=== PATIENT | male | born 1955 | race Caucasian/White ===

== ENCOUNTER 2020-09-13 13:04 | Outpatient (CLI) | payer MEDICARE, SELFPAY ==
--- NOTE | 2020-09-13 13:23 | XR_ITS ---
WS: [id number] Right shoulder, 3 views, 09/13/2020 Clinical Data: R SHOULDER PAIN Comparison: None. Findings: No fractures or dislocations are seen. The AC joint is normal. The adjacent right clavicle, right sca pula and ribs are normal. The soft tissues are unremarkable. Incidentally noted is a patchy opacity at the right cardiophrenic angle and also in the left hilum an d a chest x-ray may be helpful. XR/XR shoulder RT min 2V* [id number] Impression: 1. Negative right shoulder. 2. Possible patchy opacities at right cardiophrenic angle and in left hilum and a chest x-ray may be helpful.
== END 2020-09-13 13:05 | disposition home or self-care (01) ==
PROVIDERS: PCP Family Medicine; Visit Provider Family Medicine
DX: M25.511 Pain in right shoulder (principal)
CPT/HCPCS: 73030

== ENCOUNTER 2020-09-28 10:44 | Outpatient (CLI) | payer MEDICARE, SELFPAY ==
--- NOTE | 2020-09-28 10:49 | CT_ITS ---
WS: [id number] CT CHEST WITHOUT INTRAVENOUS CONTRAST HISTORY: ABNORMAL CHEST RADIOGRAPH TECHNIQUE: Contiguous 5 mm axial imaging performed on the thorax. Coronal and sagittal reformats are submitted. All CT scans at [facility] use at least one of these dose optimization techniq ues: automated exposure control; mA and/or kV adjustment per patient size (includes targeted exams wh ere dose is matched to clinical indication); or iterative reconstruction. CONTRAST: None DLP: 1039.82 mGycm COMPARISON: RIGHT shoulder radiograph 09/13/2020. Lungs and central airway: Lungs are clear. No opacifications are identified. These opacifications wer e probably dependent changes due to supine positioning of the patient in expiration. Pleura: Normal. No pleural effusion. Heart and pericardium: Normal size heart. No pericardial effusion. Scattered coronary artery calcific ations. Mediastinum and andrew: No mediastinum or hilar adenopathy. Vessels: Normal size aortic and pulmonary artery. No coronary artery calcifications. Chest wall and lower neck: There are several small lymph nodes in the LEFT axilla. Soft tissue reticu lation surrounding the nodules in the LEFT axilla of uncertain etiology. No mass identified. Upper abdomen: Splenic granulomata. Normal adrenal glands. Osseous structures: No osteoblastic or osteolytic bone disease. CT/CT chest wo con [id number] IMPRESSION: 1. No pulmonary mass or nodule. Opacifications seen on the recent radiograph a re probably dependent changes and due to expiration. 2. Very mild soft tissue stranding and inflammation surrounding the LEFT axill mehreen lymph nodes. LEFT axillary lymph nodes are normal size. This may be a react jaxson response to infection or trauma.
== END 2020-09-28 10:45 | disposition home or self-care (01) ==
LOC: RADWPI 10:49
PROVIDERS: PCP Family Medicine; Visit Provider Family Medicine
DX: R91.8 Other nonspecific abnormal finding of lung field (principal)
CPT/HCPCS: 71250

== ENCOUNTER → 2021-12-10 12:07 | Outpatient (BNVA) | payer MEDICARE, SELFPAY | PROVIDERS: PCP Family Medicine; Visit Provider Family Medicine | DX: L02.91 Cutaneous abscess, unspecified (principal) | CPT/HCPCS: 87070; 87077; 87184 ==

== ENCOUNTER → 2022-02-12 12:48 | Outpatient (BNVA) | payer MEDICARE, SELFPAY | PROVIDERS: PCP Family Medicine; Visit Provider Specialist | DX: M17.0 Bilateral primary osteoarthritis of knee (principal); M48.061 Spinal stenosis, lumbar region without neurogenic claudication; M25.561 Pain in right knee; M25.562 Pain in left knee | CPT/HCPCS: 73560; 73565; 99204 ==

== ENCOUNTER → 2022-03-25 10:32 | Outpatient (BNVA) | payer MEDICARE, SELFPAY | PROVIDERS: PCP Family Medicine; Referring Provider Specialist; Visit Provider Specialist | DX: G62.89 Other specified polyneuropathies (principal); M54.50 Low back pain, unspecified | CPT/HCPCS: 95909; 95911 ==

== ENCOUNTER 2022-04-22 15:29 | Outpatient (CLI) | payer MEDICARE, SELFPAY ==
--- NOTE | 2022-04-22 16:00 | MR_ITS ---
WS: [id number] MRI LUMBAR SPINE NONCONTRAST HISTORY: pain COMPARISON: 06/28/2012 TECHNIQUE: Sagittal and axial multisequence imaging is submitted. Patient has a known, previously described syrinx at the T12 level. This is incompletely visualized on this lumbar MRI. Does not appear to have progressed inferiorly. Straightening of the normal lumbar lordosis. Schmorl's node defect superior endplate of L3. Hypertrop hic vertebral body osteophytes at all levels. S1 is lumbarized. Disc spaces are mildly desiccated throughout. Conus terminates normally at L1. T12-L1: Slight anterolisthesis of T12. Moderate ligamentum flavum and facet arthritis and disc bulgin g. Mild bilateral foraminal narrowing. L1-L2: Mild annular disc bulging and osteophytic ridging. Mild facet and ligamentum flavum hypertroph y. No significant stenosis. L2-L3: Moderate annular disc bulging with encroachment upon the ventral thecal sac and flattening. Fa cet joint arthritis and ligamentum flavum hypertrophy encroaching towards the subarticular recesses a nd foramen. Mild central and bilateral subarticular recess stenosis. L3-L4: Diffuse osteophytic ridging and annular disc bulging with marked ligamentum flavum and facet a rthritis. Fluid in the facet joints. There is severe central and bilateral subarticular recess stenos is. Mild to moderate bilateral foraminal stenosis, RIGHT greater than LEFT. Progression of stenosis s jean carlos the prior study. L4-L5: Diffuse annular disc bulging and osteophytic ridging. Marked ligamentum flavum and facet arthr itis. Fluid in the facet joints bilaterally. Moderate progression of stenosis since the prior study. Moderate to severe central with bilateral subarticular recess and [id number] foraminal stenosis . L5-S1: Diffuse annular disc bulging with marked ligamentum flavum and facet arthritis. Fluid in the f acet joints bilaterally. Disc and osteophyte encroachment upon the S1 and L5 nerve roots bilaterally. There may be a small disc protrusion in the RIGHT foramen. Nevertheless there is moderate central wi th moderate to severe subarticular recess and foraminal stenosis. Greater stenosis on the RIGHT. Paravertebral soft tissues are negative. MR/MR lumbar spine wo con* [id number] IMPRESSION: 1. Progression of stenosis at L3-4, L4-5 and L5-S1. 2. Moderate to severe central and bilateral subarticular recess and mild to mo derate foraminal stenosis at L4-5. 3. Moderate central with moderate to severe bilateral subarticular recess and foraminal stenosis at L5-S1, greatest on the RIGHT. RIGHT foraminal disc protru aleta is suspected. 4. Severe central with bilateral subarticular recess stenosis at L3-4 with mil d to moderate foraminal stenosis RIGHT greater than LEFT. 5. Mild central and bilateral subarticular recess stenosis at L2-3. 6. Incompletely visualized but previously described syrinx at the T12 level.
== END 2022-04-22 15:30 | disposition home or self-care (01) ==
LOC: RAD 15:30
PROVIDERS: PCP Family Medicine; Visit Provider Specialist
DX: M25.569 Pain in unspecified knee (principal); M48.061 Spinal stenosis, lumbar region without neurogenic claudication; M48.07 Spinal stenosis, lumbosacral region
CPT/HCPCS: 72148

== ENCOUNTER → 2022-04-24 13:05 | Outpatient (BNVA) | payer MEDICARE, SELFPAY | PROVIDERS: PCP Family Medicine; Referring Provider Specialist; Visit Provider Specialist | DX: G62.89 Other specified polyneuropathies (principal); M06.9 Rheumatoid arthritis, unspecified; M48.062 Spinal stenosis, lumbar region with neurogenic claudication; R20.0 Anesthesia of skin; R20.2 Paresthesia of skin | CPT/HCPCS: 36415; 82607; 82746; 83036; 84155; 84165; 85651; 86160; 86162; 86235; 86255; 86376; 86431; 95861; 99202 ==

== ENCOUNTER → 2022-05-12 12:54 | Outpatient (BNVA) | payer MEDICARE, SELFPAY | PROVIDERS: PCP Family Medicine; Visit Provider Specialist | DX: X58.XXXA Exposure to other specified factors, initial encounter (principal); S83.206A Unspecified tear of unspecified meniscus, current injury, right knee, initial encounter; M48.062 Spinal stenosis, lumbar region with neurogenic claudication; G62.9 Polyneuropathy, unspecified | CPT/HCPCS: 99214; 99215 ==

== ENCOUNTER 2022-07-02 12:50 | Outpatient (CLI) | payer MEDICARE, SELFPAY ==
--- NOTE | 2022-07-02 13:00 | MR_ITS ---
WS: [id number] MRI RIGHT KNEE HISTORY: Posterior RIGHT knee pain for 4 months. Locking knee. COMPARISON: Radiographs 02/12/2022 Anterior cruciate ligament: Intact. Edema surrounds the ACL but no tear. Posterior cruciate ligament: Intact. Medial collateral ligament: Edema surrounds the MCL but there is no tear. Posterior lateral corner structures: Partial tear of the fibular collateral ligament. There is increa sed fluid within the ligament. Lateral collateral ligament is being displaced from the joint line by an extruded meniscus. Medial menisci: Horizontal tear posterior one extends to the inferior articular surface near the body . Anterior horn is normal. Lateral meniscus: Diffusely abnormal signal throughout the anterior horn. Complex tear extends to the superior and inferior articular surfaces. Extensor mechanism: Distal quadriceps tendon and patellar tendons are intact. Fluid and soft tissue: Moderate to large joint effusion. Moderate Thompson's cyst. Osseous and articular structures: Patellofemoral compartment: Normal position of the patella. Mild chondromalacia lateral patellar face t. Medial compartment: Mild narrowing of the medial compartment. Significant loss of cartilage along the femoral condyle and tibial plateau. No fracture or marrow edema. Lateral compartment: Mild narrowing of the lateral compartment with thinning and fissuring of the car tilage. Meniscus is extruded from the joint line by 6.4 mm. Large amount of edema extends into the infrapatellar fat pad. MR/MR knee RT wo con* [id number] IMPRESSION: 1. Horizontal tear posterior horn medial meniscus. 2. Complex tear anterior horn lateral meniscus with meniscal extrusion from th e joint line. 3. Extruded lateral meniscus is displacing the fibular collateral ligament fro m the joint line. 4. Mild fibular collateral ligament sprain. 5. Moderate to large joint effusion. 6. Moderate-sized Thompson's cyst. 7. Moderate chondromalacia medial compartment 8. Mild chondromalacia medial patellar facet and in the lateral compartment.
== END 2022-07-02 12:51 | disposition home or self-care (01) ==
LOC: RAD 12:52
PROVIDERS: PCP Family Medicine; Visit Provider Specialist
DX: M25.461 Effusion, right knee; M71.21 Synovial cyst of popliteal space [Baker], right knee; M22.41 Chondromalacia patellae, right knee; S83.241A Other tear of medial meniscus, current injury, right knee, initial encounter; X58.XXXA Exposure to other specified factors, initial encounter
CPT/HCPCS: 73721

== ENCOUNTER → 2022-10-22 11:24 | Outpatient (BNVA) | payer MEDICARE, SELFPAY | PROVIDERS: PCP Family Medicine; Visit Provider Family Medicine | DX: M06.9 Rheumatoid arthritis, unspecified (principal); E78.5 Hyperlipidemia, unspecified; I10 Essential (primary) hypertension; M48.062 Spinal stenosis, lumbar region with neurogenic claudication | CPT/HCPCS: 80053; 80061; 85025; 86140 ==

== ENCOUNTER 2022-12-20 12:42 | Inpatient (IN) | payer MEDICARE, SELFPAY ==
[2022-12-20] VITALS (16 sets, daily range): BP systolic 110–147; BP diastolic 70–102; PULSE 53–144; RESP 13–23; TEMP 36.4–36.6; O2SAT 89–98
--- NOTE | 2022-12-20 12:47 | XRR_ITS ---
PROCEDURE INFORMATION: Exam: XR Chest Exam date and time: 12/20/2022 1:01 PM Age: 67 years old Clinical indication: Pain; Chest pressure; Additional info: Cp TECHNIQUE: Imaging protocol: Radiologic exam of the chest. Views: 1 view. COMPARISON: CT chest [facility] [id number] 09/28/2020 10:57 AM FINDINGS: Lungs: Lung volumes are somewhat decreased which may be due to body habitus. No infiltrates. Pleural spaces: Unremarkable. No pleural effusion. No pneumothorax. Heart/Mediastinum: Unremarkable. No cardiomegaly. Bones/joints: Unremarkable. Other findings: TheFINDINGS: XR/XR chest 1V portable [id number] IMPRESSION: Decreased lung volumes otherwise negative chest.
--- NOTE | 2022-12-20 12:54 | ECG_ITS ---
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 Measurements Intervals [place] Rate: 143 P: 0 PA: 0 QRS: 19 QRSD: 107 T: 45 QT: 308 QTc: 475 Interpretive Statements ATRIAL FIBRILLATION WITH RAPID VENTRICULAR RESPONSE ST DEPRESSION, CONSIDER SUBENDOCARDIAL INJURY [0.1+ mV ST DEPRESSION] Compared to ECG 01/20/2019 15:57:06 ST (T wave) deviation now present Sinus bradycardia no longer present Intraventricular conduction delay no longer present Electronically Signed On 12-20-2022 13:59:40 CDT by Alejandro Anton M.D. [id number]
--- NOTE | 2022-12-20 13:04 | ED_ITS ---
HPI - Chest Pain General: Chief Complaint: Chest Pain Stated Complaint: Chest pain Time Seen by Provider: 12/20/22 12:57 Source: patient Mode of arrival: ambulatory Limitations: no limitations History of Present Illness: 67-year-old male states that he had went to a track meet today roughly an hour ago he states he started to have heart racing felt some discomfort in his chest and felt very lightheaded. He states he felt like his get a pass out but did not. He states he has had some irregular heart rhythms in the past but no known history of any arrhythmias. He is in A-fib with RVR with heart rate in the 140s here he has no known history of A-fib denies any fevers. Associated symptoms: Reports palpitations; Deny abdominal pain, dyspnea, fever(s), nausea or vomiting Review of Systems Const: Denies: fever(s), chills, body aches or change in appetite Eyes: Denies: blurry vision ENMT: Denies: throat pain or dental pain Card: Reports: chest pain, palpitations and irregular heart rhythm Resp: Denies: dyspnea GI: Denies: abdominal pain, nausea, vomiting or diarrhea : Denies: dysuria Musc: Denies: neck pain or back pain Skin/Breast: Denies: rash Neuro: Denies: headache(s) PFSH ED PFSH: Medical History Hyperlipidemia Hypertension Family History Mother Hypertension Father Hypertension Social History Smoking and tobacco status: never smoked Second hand smoke exposure: No Smoking risk assessment/counseling performed?: No Alcohol intake: never Substance/Drug Use: never Adopted: No Caregiver/support person: Yes Lives independently: No Household members: spouse Housing: House Marital status: Number of children: 1 Number of grandchildren: 2 Highest education level completed: High School Graduate service: No Current occupational status: retired Current occupation: [employer] Current occupational exposures/hazards: No Pets and animals: No Sexually active: Yes Do you think of yourself as: Straight/Heterosexual Current gender identity: Male Special maribel needs: No Agree to transfusion: Yes Physical Exam Const: COMMON NORMALS: patient oriented x3 HENMT: COMMON NORMALS: normocephalic and atraumatic HEAD & SCALP: normocephalic and atraumatic Eye: COMMON NORMALS: conjunctivae normal CONJUNCTIVA: Yes conjunctivae normal Neck/C-Spine: COMMON NORMALS: full ROM and supple Chest: COMMONS NORMALS: normal inspection of the chest and normal palpation of entire chest wall Resp: COMMON NORMALS: normal respiratory effort, No retractions, No use of accessory muscles and clear to auscultation bilaterally AUSCULTATION: clear to auscultation bilaterally Cardio: COMMON NORMALS: No murmurs present (Cardio) RATE: tachycardic RHYTHM: abnormal rhythm irregularly irregular GI: COMMON NORMALS: Normal to inspection, nondistended, normoactive bowel s ounds present, Soft to palpation, non-tender and no masses PALPATION: Yes Soft to palpation Extremity: COMMON NORMALS: normal to inspection and full ROM Neuro: COMMON NORMALS: patient oriented x3, moves all extremities and no focal motor deficits Psych: COMMON NORMALS: mental status grossly normal, Normal thought process present and cooperative THOUGHT PROCESS: Normal thought process present Skin: COMMON NORMALS: no rashes or lesions noted and no wounds GENERAL SKIN EXAM: no rashes or lesions noted Course Vital Signs: Vital signs: Vital Signs Temperature 97.9 F 12/20/22 12:50 Pulse Rate 90 12/20/22 13:32 Respiratory Rate 13 12/20/22 13:32 Blood Pressure 117/82 12/20/22 13:32 Pulse Oximetry 95 12/20/22 13:32 Oxygen Delivery Me thod Room Air 12/20/22 12:50 MDM - Chest Pain Medical Decision Making Patient presents with new onset A-fib RVR heart rate was in the 140s after 10 of Cardizem he has been in the 90s here he feels much improved blood work here is normal no signs of pulm embolism I spoke to the hospitalist will admit at this time. Lab Data 12/20/22 13:20 12/20/22 13:20 Radiology Impressions Chest X-Ray 12/20/22 12:47 IMPRESSION: Decreased lung volumes otherwise negative chest. Laboratory Results WBC 7.7 10^3/uL (4.0-10.0) 12/20/22 13:20 RBC 5.24 10^6/uL (4.1-5.3) 12/20/22 13:20 Hgb 16.2 g/dL (11.7-16.6) 12/20/22 13:20 Hct 48.0 % (42.0-52.0) 12/20/22 13:20 MCV 91.6 fl (80-94) 12/20/22 13:20 MCH 30.9 pg (28.0-34.0) 12/20/22 13:20 MCHC 33.8 g/dL (30.0-36.0) 12/20/22 13:20 RDW 12.7 % (12.1-15.1) 12/20/22 13:20 Plt Count 209 10^3/cmm (130-400) 12/20/22 13:20 MPV 10.0 fL (7.4-10.4) 12/20/22 13:20 Neut % (Auto) 63.5 % 12/20/22 13:20 Lymph % (Auto) 24.9 % 12/20/22 13:20 Robertson % (Auto) 9.0 % 12/20/22 13:20 Eos % (Auto) 1.6 % 12/20/22 13:20 Baso % (Auto) 0.7 % 12/20/22 13:20 Neut # (Auto) 4.87 10^3/uL (1.8-7.7) 12/20/22 13:20 Lymph # (Auto) 1.9 10^3/uL (0.8-4.8) 12/20/22 13:20 Robertson # (Auto) 0.7 10^3/uL (0.2-0.9) 12/20/22 13:20 Eos # (Auto) 0.1 10^3/uL (0.0-0.8) 12/20/22 13:20 Baso # (Auto) 0.1 10^3/uL (0.0-0.1) 12/20/22 13:20 Nucleated RBC % (auto) 0 % 12/20/22 13:20 Nucleated RBCs # 0.0 /100WBC 12/20/22 13:20 PT 13.40 SECONDS (12.1-14.9) 12/20/22 13:20 INR 0.99 (0.8-1.2) 12/20/22 13:20 Sodium 137 mmol/L (136-145) 12/20/22 13:20 Potassium 4.1 mmol/L (3.5-5.1) 12/20/22 13:20 Chloride 102 mmol/L (98-107) 12/20/22 13:20 Carbon Dioxide 21 mmol/L (22-29) L 12/20/22 13:20 Anion Gap 18.1 (5-19) 12/20/22 13:20 BUN 10 mg/dL (8-23) 12/20/22 13:20 Creatinine 0.9 mg/dL (0.7-1.2) 12/20/22 13:20 GFR Calculation 83.7 mL/min (90-130) L 12/20/22 13:20 Glucose 156 mg/dL (65-115) H 12/20/22 13:20 Calculated Osmolality 286 mOsm/kg (285-295) 12/20/22 13:20 Calcium 8.9 mg/dL (8.5-10.5) 12/20/22 13:20 Total Bilirubin 0.4 mg/dL (0.15-1.2) 12/20/22 13:20 AST 31 U/L (0-40) 12/20/22 13:20 ALT 44 U/L (0-41) H 12/20/22 13:20 Alkaline Phosphatase 56 U/L (40-130) 12/20/22 13:20 Troponin T Baseline 22 ng/L (0-15) H 12/20/22 13:20 Total Protein 6.9 g/dL (6.6-8.7) 12/20/22 13:20 Albumin 4.5 g/dL (3.5-5.2) 12/20/22 13:20 Globulin 2.4 g/dL (1.3-4.6) 12/20/22 13:20 Lipase 35 U/L (13-60) 12/20/22 13:20 EKG Data EKG 1: I personally reviewed and interpreted this EKG as follows: EKG interpretation date: 12/20/22 EKG interpretation time: 12:54 Interpretation: afib rvr hr [address] or t wave abnormalities qrs 107 qtc 391 Critical Care Time Critical Care Time: Critical Care Time: Yes Total Critical Care Time: 35 Attestation: The high probability of a clinically significant, sudden or life threatening deterioration of the patient's cv system(s) required my full and direct atte ntion, intervention and personal management. The critical care time is as shown. This time is in addition to time spent performing any reported procedures but includes the following: [x] Data and vital sign review and interpretation [x] Patient assessment, examination and intervention [x] Documentation [x] Medication orders and management Discharge Plan Discharge Patient Disposition: Admitted As Inpatient Clinical Impression: Atrial fibrillation with rapid ventricular response Condition: Stable Prescriptions: No Action senna 8.6 mg capsule 8.6 mg PO DAILY Fish Oil 120-180-500 mg capsule 1 cap PO DAILY aspirin 81 mg tablet,delayed release (DR/EC) 81 mg PO DAILY metoprolol tartrate 50 mg tablet 25 mg PO BID famotidine 20 mg tablet 20 mg PO BID Qty: 60 11RF cyclobenzaprine 10 mg tablet See Rx Instructions .ROUTE .COMPLEX Qty: 30 11RF Dose Instruction: TAKE 1 TABLET BY MOUTH ONCE DAILY AT NIGHT NEEDED Rx Instructions: TAKE 1 TABLET BY MOUTH ONCE DAILY AT NIGHT NEEDED Vitamin D3 25 mcg (1,000 unit) Capsule 25 mcg PO DAILY tamsulosin 0.4 mg capsule 0.4 mg PO DAILY finasteride 5 mg tablet 5 mg PO DAILY Referrals: Alex Whyte MD [Primary Care Provider] - Coding Level of Care Code ED Immigration Inspector for Navneet Regan
[2022-12-20] MEDS: dilTIAZem 5 mg/mL SDV 5 mL 10 MG IVP (13:11)
[2022-12-20] MEDS: sodium chloride 0.9% 1,000 ML 999 ML IV (13:12)
[2022-12-20 13:27] LABS: Basophils # 0.1 10^3/uL (0.0-0.1); Basophils % 0.7 %; Eosinophils # 0.1 10^3/uL (0.0-0.8); Eosinophils % 1.6 %; Hemoglobin 16.2 g/dL (11.7-16.6); Lymphocytes # 1.9 10^3/uL (0.8-4.8); Lymphocytes % 24.9 %; Mean Corpuscular HGB Conc 33.8 g/dL (30.0-36.0); Mean Corpuscular Hemoglobin 30.9 pg (28.0-34.0); Mean Corpuscular Volume 91.6 fl (80-94); Monocytes # 0.7 10^3/uL (0.2-0.9); Neutrophils # 4.87 10^3/uL (1.8-7.7); Neutrophils % 63.5 %; Nucleated Red Blood Cells % 0 %; Platelet Count 209 10^3/cmm (130-400); Red Blood Count 5.24 10^6/uL (4.1-5.3); Red Cell Distribution Width 12.7 % (12.1-15.1); White Blood Count 7.7 10^3/uL (4.0-10.0)
[2022-12-20 13:41] LABS: INR 0.99 (0.8-1.2)
[2022-12-20 13:49] LABS: Alanine Aminotransferase 44 U/L (0-41); Albumin Level 4.5 g/dL (3.5-5.2); Alkaline Phosphatase 56 U/L (40-130); Anion Gap 18.1 (5-19); Aspartate Amino Transferase 31 U/L (0-40); Blood Urea Nitrogen 10 mg/dL (8-23); Calcium 8.9 mg/dL (8.5-10.5); Carbon Dioxide 21 mmol/L (22-29); Chloride 102 mmol/L (98-107); Globulin 2.4 g/dL (1.3-4.6); Glomerular Filtration Rate 83.7 mL/min (90-130); Glucose 156 mg/dL (65-115); Lipase 35 U/L (13-60); Osmolality Calculated 286 mOsm/kg (285-295); Potassium 4.1 mmol/L (3.5-5.1); Sodium 137 mmol/L (136-145); Total Bilirubin 0.4 mg/dL (0.15-1.2); Total Protein 6.9 g/dL (6.6-8.7); Troponin(5th) Baseline 22 ng/L (0-15)
--- NOTE | 2022-12-20 14:40 | P.HP_ITS ---
Providers/Chief Complaint Admitting Physician: Antonio Pitt MD Primary Care Provider: Alex Whyte MD Chief Complaint: Chest pain History of Present Illness Andres Henriquez is a 67 year old male with a past medical history of hypertension, hyperlipidemia, who presents [facility] for chest pain, shortness of breath, chest palpitations. Patient tells me that recently he has been developing substernal chest pain, radiating to his back up to his neck, associated shortness of breath. Has been feeling more short of breath with exertion, he has been try to exercise more he tells me that with 5 minutes on the treadmill, he feels more short of breath. He tells me that he was going fishing yesterday, and his son said that he looked quite short of breath, with minimal exertion. Today he was going to track and feel need to watch one of his grandchildren, and when he climbed up the bleachers, he was feeling quite short of breath he went to sit down, start developed substernal chest pain radiating up to the neck, rating down the arm, sharp pain, associate with chest palpitations he felt as if he was going to pass out, no nausea, vomiting, diaphoresis. In the emergency room he was found to have A-fib with RVR,, currently he received Cardizem, currently in A-fib the heart rates are in the 80s, he tells me that he has had an angiogram but it was been over 10 years Review of Systems Const: Denies: fever(s) Eyes: Denies: change in vision ENMT: Reports: nasal discharge Card: Reports: chest pain, palpitations and irregular heart rhythm Resp: Reports: dyspnea; Denies: non-productive cough GI: Denies: abdominal pain, nausea or vomiting : Denies: difficulty urinating Musc: Denies: neck pain Skin/Breast: Denies: rash Neuro: Reports: dizziness; Denies: headache(s), numbness in extremities or weakness in extremities Psych: Denies: anxiety Endo: Denies: polyuria Medications/Allergies Home Medications Medication Instructions Recorded Confirmed Last Taken Type omega 2-gwa-sqk-fish oil 120 1 cap PO DAILY 03/25/22 12/20/22 12/20/22 History mg-180 mg-500 mg capsule (Fish Oil) sennosides 8.6 mg capsule (senna) 8.6 mg PO DAILY 03/25/22 12/20/22 12/20/22 History cyclobenzaprine 10 mg tablet See Rx Instructions .Route 09/02/22 12/20/22 Unknown Rx .COMPLEX #30 tabs aspirin 81 mg tablet,delayed 81 mg PO DAILY 10/22/22 12/20/22 12/20/22 History release famotidine 20 mg tablet 20 mg PO BID #60 tabs 10/22/22 12/20/22 12/20/22 Rx metoprolol tartrate 50 mg tablet 25 mg PO BID 10/22/22 12/20/22 12/20/22 History cholecalciferol (vitamin D3) 25 25 mcg PO DAILY 12/20/22 12/20/22 12/20/22 History mcg (1,000 unit) capsule (Vitamin D3) finasteride 5 mg tablet 5 mg PO DAILY 12/20/22 12/20/22 12/19/22 History tamsulosin 0.4 mg capsule 0.4 mg PO DAILY 12/20/22 12/20/22 12/20/22 History Allergies Allergy/AdvReac Type Severity Reaction Status Date / Time No Known Allergies Allergy Verified 05/12/22 12:59 PFSH Acute PFSH: Medical History Hyperlipidemia Hypertension Surgical History H/O hernia repair H/O lateral meniscus repair of left knee Family History Mother Hypertension Father Hypertension Social History Smoking and tobacco status: never smoked Second hand smoke exposure: No Smoking risk assessment/counseling performed?: No Alcohol intake: never Substance/Drug Use: never Adopted: No Caregiver/support person: Yes Lives independently: No Household members: spouse Housing: House Marital status: Number of children: 1 Number of grandchildren: 2 Highest education level completed: High School Graduate service: No Current occupational status: retired Current occupation: [employer] Current occupational exposures/hazards: No Pets and animals: No Sexually active: Yes Do you think of yourself as: Straight/Heterosexual Current gender identity: Male Special maribel needs: No Agree to transfusion: Yes Vitals/I&O/Wt Last Vital Signs Temp 97.9 F 12/20/22 12:50 Pulse 90 12/20/22 13:32 Resp 13 12/20/22 13:32 BP 117/82 12/20/22 13:32 Pulse Ox 95 12/20/22 13:32 O2 Del Method Room Air 12/20/22 12:50 12/19/22 12/20/22 12/20/22 22:59 06:59 14:59 Intake Total 1000 / 1000 Balance 1000 / 1000 Weight last 48 hrs Weight 90.718 kg Physical Exam Const: COMMON NORMALS: no acute distress and patient oriented x3 GENERAL APPEARANCE: cooperative, well kempt and well developed HENMT: COMMON NORMALS: normocephalic and Normal external nose present FACE & SINUS: normal facial exam MOUTH: Normal oral and palatal mucosa present Eye: COMMON NORMALS: Equal, round and reactive pupils present, EOMs intact bilaterally and no scleral icterus PUPIL: Yes Equal, round and reactive pupils present Neck/C-Spine: COMMON NORMALS: full ROM, no lymphadenopathy, no JVD, Thyroid normal and No carotid bruits THYROID: Thyroid normal Lymph: LYMPHATIC: no lymphadenopathy noted Chest: COMMONS NORMALS: normal inspection of the chest Resp: COMMON NORMALS: normal respiratory effort, No retractions, No use of accessory muscles and clear to auscultation bilaterally AUSCULTATION: clear to auscultation bilaterally Cardio: COMMON NORMALS: regular rate, regular rhythm, S1 normal heart sound present, S2 normal heart sound present, No murmurs present (Cardio) and Peripheral pulses 2+ throughout RATE: regular rate RHYTHM: regular rhythm HEART SOUNDS: S1 normal heart sound present and S2 normal heart sound present PERIPHERAL PULSES: Peripheral pulses 2+ throughout GI: COMMON NORMALS: Normal to inspection, nondistended, normoactive bowel sounds present and Soft to palpation PALPATION: Yes No hepatosplenomegaly present : BLADDER/KIDNEY EXAM: Yes no CVA tenderness Back/Pelvis: COMMON NORMALS: no CVA tenderness Extremity: COMMON NORMALS: normal to inspection, no calf tenderness and no pedal edema Neuro: COMMON NORMALS: patient oriented x3, CN's II-XII intact bilaterally, moves all extremities, no focal motor deficits and no sensory deficits noted Psych: COMMON NORMALS: mental status grossly normal, Normal thought process present, cooperative and speech normal APPEARANCE: Yes well kempt SPEECH: Yes normal speech THOUGHT PROCESS: Normal thought process present Skin: COMMON NORMALS: turgor normal GENERAL SKIN EXAM: turgor normal Data 12/20/22 13:20 12/20/22 13:20 CXR: My impression: no acute infiltrates EKG 1: My Interpretation: shows affib with rvr, st depression in inferior leads A&P Assessment and plan (1) Atrial fibrillation with rapid ventricular response: (2) Hypertension: (3) Hyperlipidemia: (4) Chest pain: (5) Goals of care, counseling/discussion: Plan Chest pain -Serial EKGs, serial troponins, telemetry monitoring -Cardiac echo -We will consider doing stress testing -Aspirin, statin, beta-claudine Hypertension Continue beta-claudine Hyperlipidemia, lipid panel, A1c, statin A-fib with RVR -Increase dose of metoprolol to 50 twice daily -TSH, mag -Cardiac echo -Ramiro vas score 2, start heparin drip monitor hemoglobin Full code Heparin drip for DVT prophylaxis Goals of care discussion, patient wants to be a full code Attestations Medical Necessity Statement*: patient requires hospitalization for chest pain, afib with rvr, inpatient, greater than 2 midnights Diagnoses Atrial fibrillation with rapid ventricular response I48.91 Hypertension I10 Hyperlipidemia E78.5 Chest pain R07.9 Goals of care, counseling/discussion Z71.89
--- NOTE | 2022-12-20 15:00 | USCV_ITS ---
Andres Henriquez Age: 67 Gender: M : 1955 Exam Date: 12/20/2022 18:23 Ordering Phys: Antonio Pitt MD Technologist: PORTILLO [place] [facility] [place]: afib BP: / HR: 60 Rhythm: Sinus Technical Quality: Adequate MEASUREMENTS (Male / Female) Normal Values 2D ECHO LV Diastolic Diameter PLAX 4.9 cm 4.2 - 5.9 / 3.9 - 5.3 cm LV Systolic Diameter PLAX 4.0 cm IVS Diastolic Thickness 1.0 cm 0.6 - 1.0 / 0.6 - 0.9 cm IVS Systolic Thickness 1.4 cm LVPW Diastolic Thickness 1.0 cm 0.6 - 1.0 / 0.6 - 0.9 cm LVPW Systolic Thickness 1.1 cm LVOT Diameter 2.1 cm LV Ejection Fraction 2D Teich 40.4 % LV Ejection Fraction MOD 2C 37.8 % LV Ejection Fraction 2C AL 38.6 % LA Diameter 3.7 cm IVC Diameter 2.1 cm M-MODE Aortic Annulus Diameter 2.9 cm LA Ao Ratio MM 1.4 MV E Point Septal Separation 0.6 cm DOPPLER AV Peak Velocity 76.0 cm/s LVOT Peak Velocity 71.0 cm/s AV Area Cont Eq vti 3.1 cm squared AV Area Cont Eq pk 3.1 cm squared MV Area PHT 5.0 cm squared Mitral E to A Ratio 1.0 MV E' Velocity 40.0 cm/s Mitral E to MV E' Ratio 10.6 Mitral E to LV E' Lateral Ratio 9.6 Mitral E to LV E' Septal Ratio 11.8 TR Peak Velocity 81.5 cm/s TR Peak Gradient 2.7 mmHg Right Atrial Pressure 3.0 mmHg Pulmonary Artery Systolic Pressu 5.7 mmHg PV Peak Velocity 88.0 cm/s FINDINGS Left Ventricle Left ventricle is normal in size. Grossly LV systolic function is mildly reduced. Regional wall motion abnormalities cannot be assessed because of poor ultrasonic windows. Right Ventricle Grossly normal Right Atrium Normal in size Left Atrium Normal in size Mitral Valve Grossly normal Aortic Valve Not well-visualized Tricuspid Valve Not well-visualized Pulmonic Valve Not well-visualized Pericardium Normal Aorta Normal in size IVC Appears to be normal CONCLUSIONS Technically very limited quality echocardiogram because of poor ultrasonic windows. Grossly LV systolic function is mildly reduced. Regional wall motion abnormalities cannot be assessed because of poor ultrasonic windows. Valvular structures are not well-visualized. No comparison studies available Alejandro Anton MD (Electronically Signed) Final Date: 21 Dec 2022 12:12 S
[2022-12-20] MEDS: dilTIAZem 100 MG in sodium chloride 0.9% (add-van) 100 ML IV (15:10)
[2022-12-20 15:52] LABS: Chol HDL Ratio 7.17 mg/dL (1.0-5.00); Cholesterol 258 mg/dL (0-200); HDL Cholesterol 36 mg/dL (60-100); LDL Cholesterol Calculated 165 mg/dL (50-129); LDL HDL Ratio 4.58 RATIO (0.00-3.22); Magnesium 1.9 mg/dL (1.7-2.3); NT Pro B Type Natriuretic Pept 98 pg/mL (0-125); Thyroid Stimulating Hormone 3.25 uIU/mL (0.27-4.20); Triglycerides 285 mg/dL (0-150)
[2022-12-20 15:53] LABS: Estmated Average Glucose 111; Hemoglobin A1C 5.5 % (4.0-6.0)
--- NOTE | 2022-12-20 15:56 | ECG_ITS ---
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 Measurements Intervals [place] Rate: 66 P: 30 CO: 117 QRS: 35 QRSD: 109 T: 11 QT: 383 QTc: 401 Interpretive Statements SINUS RHYTHM WITH SHORT CO INTERVAL Compared to ECG 12/20/2022 12:54:08 Short CO interval now present Atrial fibrillation no longer present ST (T wave) deviation no longer present Electronically Signed On 12-20-2022 20:25:15 CDT by Alejandro Anton M.D. [id number]
[2022-12-20] MEDS: heparin drip 25,000 UNIT/500 ML PREMIX 48.99 UNIT IV (16:00)
[2022-12-20] MEDS: metoprolol tartrate 50 mg Tablet PO (16:17)
[2022-12-20 16:24] LABS: Troponin 5 2HR 55.04 ng/L (0-15)
--- NOTE | 2022-12-20 16:27 | PC.NURSE ---
received from er via stretcher at 1540.report received.pt is alert and oriented x 4.denies pain at present.afib at controlled rate on monitor.(70-80's).bp stable.denies dizziness or sob.oriented to room environment.instructed to notify staff for any sob,dizziness,chest pain...or for any concerns at all.pt verb understanding of instructed.
--- NOTE | 2022-12-20 16:31 | PC.NURSE ---
converted to nsr on monitor at 1600.(rate 70's).dr murdock notified.he ordered to stop cardizem drip;give 1800 metoprolol now;continue heparin drip.
[2022-12-20 16:35] LABS: Troponin 5 2HR Delta 33.04 ABS# (0-10)
[2022-12-20] MEDS: famotidine 20 mg Tablet PO (17:59)
--- NOTE | 2022-12-20 19:00 | ECG_ITS ---
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 Measurements Intervals [place] Rate: 60 P: 28 IN: 118 QRS: 43 QRSD: 106 T: 12 QT: 399 QTc: 400 Interpretive Statements SINUS RHYTHM WITH SHORT IN INTERVAL Compared to ECG 12/20/2022 15:56:35 No significant changes Electronically Signed On 12-20-2022 20:24:47 CDT by Alejandro Anton M.D. [id number]
[2022-12-20 19:56] LABS: Troponin 5 6HR 129.6 ng/L (0-15); Troponin 5 6HR Delta 107.6 ng/L (0-12)
[2022-12-20] MEDS: tamsulosin 0.4 mg Capsule PO (21:27)
[2022-12-20] MEDS: cyclobenzaprine 10 mg Tablet PO (21:27)
--- NOTE | 2022-12-20 21:27 | PC.NURSE ---
Spoke with regarding elevated 6hr troponin. ordered to keep patient NPO after midnight and consult cardilogy . Also spoke with regarding tamsulosin dose and prn cyclobenzapine, gave orders for tamsulosin at bedtime and prn cyclobenzapine. Patient refused tonights dose of atorvastatin, states he has an adverse reaction of muscle pain in his legs from all statins so sever that he cant walk. Statins added to allergy list. Per document refusal for now and reasoning.
[2022-12-20 21:58] LABS: Partial Thromboplastin Time 122.4 SECONDS (23.9-36.7)
[2022-12-21] VITALS (107 sets, daily range): BP systolic 99–129; BP diastolic 64–80; PULSE 55–79; RESP 6–37; TEMP 36.4–36.6; O2SAT 91–97
[2022-12-21] MEDS: heparin drip 25,000 UNIT/500 ML PREMIX 38.1 UNIT IV (03:21)
[2022-12-21 05:04] LABS: Basophils % 0.5 %; Eosinophils # 0.2 10^3/uL (0.0-0.8); Eosinophils % 2.3 %; Hematocrit 42.5 % (42.0-52.0); Hemoglobin 14.4 g/dL (11.7-16.6); Lymphocytes % 37.3 %; Mean Corpuscular HGB Conc 33.9 g/dL (30.0-36.0); Mean Corpuscular Hemoglobin 31.7 pg (28.0-34.0); Mean Corpuscular Volume 93.6 fl (80-94); Mean Platelet Volume 10.3 fL (7.4-10.4); Monocytes # 0.7 10^3/uL (0.2-0.9); Monocytes % 9.2 %; Neutrophils # 3.97 10^3/uL (1.8-7.7); Neutrophils % 50.3 %; Nucleated Red Blood Cells % 0 %; Platelet Count 158 10^3/cmm (130-400); Red Blood Count 4.54 10^6/uL (4.1-5.3); White Blood Count 7.9 10^3/uL (4.0-10.0)
[2022-12-21 05:23] LABS: Alanine Aminotransferase 35 U/L (0-41); Albumin Level 3.7 g/dL (3.5-5.2); Alkaline Phosphatase 49 U/L (40-130); Anion Gap 11.9 (5-19); Aspartate Amino Transferase 36 U/L (0-40); Blood Urea Nitrogen 10 mg/dL (8-23); Calcium 8.6 mg/dL (8.5-10.5); Carbon Dioxide 23 mmol/L (22-29); Chloride 107 mmol/L (98-107); Globulin 2.2 g/dL (1.3-4.6); Glomerular Filtration Rate 83.7 mL/min (90-130); Glucose 104 mg/dL (65-115); Magnesium 1.8 mg/dL (1.7-2.3); Osmolality Calculated 285 mOsm/kg (285-295); Phosphorus 3.2 mg/dL (2.5-4.5); Potassium 3.9 mmol/L (3.5-5.1); Sodium 138 mmol/L (136-145); Total Bilirubin 0.4 mg/dL (0.15-1.2); Total Protein 5.9 g/dL (6.6-8.7)
[2022-12-21 05:26] LABS: Partial Thromboplastin Time 100.7 SECONDS (23.9-36.7)
[2022-12-21] MEDS: cholecalciferol (vitamin D3) 1,000 unit Tablet 1000 UNIT PO (08:21)
[2022-12-21] MEDS: finasteride 5 mg Tablet PO (08:21)
[2022-12-21] MEDS: famotidine 20 mg Tablet PO ×2 (08:21→17:58)
[2022-12-21] MEDS: aspirin 81 mg EC Tablet PO (08:21)
[2022-12-21] MEDS: metoprolol tartrate 50 mg Tablet PO ×2 (08:21→20:19)
--- NOTE | 2022-12-21 08:48 | P.CONIM_ITS ---
Providers/Reason For Consult Consulting Physician/Specialty*: Alejandro Anton MD/ Cardiology Reason for Consult*: NSTEMI Requesting Physician: Dr Pitt Attending Physician: Antonio Pitt MD Primary Care Provider: Alex Whyte MD History of Present Illness History of Present Illness Andres Henriquez is a 67 year old male with no prior cardiac history came to the hospital with 2 to 3 weeks of on and off chest pain symptoms. Yesterday felt palpitations with associated severe chest pain radiating to the back and the jaw. He came to the hospital. EKG initially showed A-fib with RVR. After receiving Cardizem he converted back to normal sinus rhythm. His troponins were trended up significantly from baseline of 22 to 129 at 6 hours. Echocardiogram was of limited quality however does show mildly reduced LV systolic function. Review of Systems Const: Denies: fever(s) Eyes: Denies: change in vision ENMT: Reports: nasal discharge Card: Reports: chest pain, palpitations and irregular heart rhythm Resp: Reports: dyspnea; Denies: non-productive cough GI: Denies: abdominal pain, nausea or vomiting : Denies: difficulty urinating Musc: Denies: neck pain Skin/Breast: Denies: rash Neuro: Reports: dizziness; Denies: headache(s), numbness in extremities or weakness in extremities Psych: Denies: anxiety Endo: Denies: polyuria Medications/Allergies Home Medications Medication Instructions Recorded Confirmed Last Taken Type omega 4-sqo-ksr-fish oil 120 1 cap PO DAILY 03/25/22 12/20/22 12/20/22 History mg-180 mg-500 mg capsule (Fish Oil) sennosides 8.6 mg capsule (senna) 8.6 mg PO DAILY 03/25/22 12/20/22 12/20/22 History aspirin 81 mg tablet,delayed 81 mg PO DAILY 10/22/22 12/20/22 12/20/22 History release famotidine 20 mg tablet 20 mg PO BID #60 tabs 10/22/22 12/20/22 12/20/22 Rx metoprolol tartrate 50 mg tablet 25 mg PO BID 10/22/22 12/20/22 12/20/22 History cholecalciferol (vitamin D3) 25 25 mcg PO DAILY 12/20/22 12/20/22 12/20/22 History mcg (1,000 unit) capsule (Vitamin D3) cyclobenzaprine 10 mg tablet 10 mg PO BEDTIME PRN Muscle Spasm 12/20/22 12/20/22 Unknown History finasteride 5 mg tablet 5 mg PO DAILY 12/20/22 12/20/22 12/19/22 History tamsulosin 0.4 mg capsule 0.4 mg PO BEDTIME 12/20/22 12/20/22 12/20/22 History Allergies Allergy/AdvReac Type Severity Reaction Status Date / Time Pamsprs-RLJ-TyK Reductase Allergy Severe ADR-Muscle Verified 12/20/22 20:47 Inhibitor Pain Current Medications Generic Name Dose Route Start Last Admin Trade Name Freq PRN Reason Stop Dose Admin Aspirin 81 mg 12/21/22 09:00 12/21/22 08:21 Aspirin 81 Mg Ec Tablet PO 81 mg DAILY KAROL Administration Atorvastatin Calcium 40 mg 12/20/22 21:00 12/20/22 20:47 Atorvastatin 40 Mg Tablet PO Not Given BEDTIME KAROL Cyclobenzaprine HCl 10 mg 12/20/22 21:13 12/20/22 21:27 Cyclobenzaprine 10 Mg Tablet PO 10 mg BEDTIME PRN Administration MUSCLE SPASMS Famotidine 20 mg 12/20/22 18:00 12/21/22 08:21 Famotidine 20 Mg Tablet PO 20 mg BID KAROL Administration Finasteride 5 mg 12/21/22 09:00 12/21/22 08:21 Finasteride 5 Mg Tablet PO 5 mg DAILY KAROL Administration Heparin Sodium/Sodium Chloride 25,000 unit in 500 mls @ 0 mls/hr 12/20/22 15:00 12/21/22 05:29 Heparin Drip IV 15 unit/kg/hr .Q0M KAROL 27.22 mls/hr Titration Protocol Per Protocol Diltiazem HCl 100 mg/ Sodium 100 mls @ 0 mls/hr 12/20/22 15:15 12/20/22 19:52 Chloride IV Infused .Q0M KAROL Titration Protocol Per Protocol Metoprolol Tartrate 50 mg 12/20/22 18:00 12/21/22 08:21 Metoprolol Tartrate 50 Mg Tablet PO 50 mg BID KAROL Administration Non-Formulary Medication 1 cap 12/21/22 09:00 12/21/22 08:22 [place] 9-Zqs-Ffc-Fish Oil [Fish Oil] PO Not Given DAILY KAROL Tamsulosin HCl 0.4 mg 12/20/22 21:00 12/20/22 21:27 Tamsulosin 0.4 Mg Capsule PO 0.4 mg BEDTIME KAROL Administration Vitamin D 1,000 unit 12/21/22 09:00 12/21/22 08:21 Cholecalciferol (Vitamin D3) 1,000 Unit Tablet PO 1,000 unit DAILY KAROL Administration PFSH Acute PFSH: Medical History Hyperlipidemia Hypertension Surgical History H/O hernia repair H/O lateral meniscus repair of left knee Family History Mother Hypertension Father Hypertension Social History Smoking and tobacco status: never smoked Second hand smoke exposure: No Smoking risk assessment/counseling performed?: No Alcohol intake: never Substance/Drug Use: never Adopted: No Caregiver/support person: Yes Lives independently: No Household members: spouse Housing: House Marital status: Number of children: 1 Number of grandchildren: 2 Highest education level completed: High School Graduate service: No Current occupational status: retired Current occupation: [employer] Current occupational exposures/hazards: No Pets and animals: No Sexually active: Yes Do you think of yourself as: Straight/Heterosexual Current gender identity: Male Special maribel needs: No Agree to transfusion: Yes Vitals/I&O/Wt Last Vital Signs Temp 97.6 F 12/20/22 20:00 Pulse 65 12/21/22 08:20 Resp 19 H 12/21/22 07:44 BP 129/80 12/21/22 08:20 Pulse Ox 92 12/21/22 07:44 O2 Del Method Room Air 12/21/22 07:44 12/20/22 12/21/22 12/21/22 22:59 06:59 14:59 Intake Total 898.924 / 1898.924 284.48 / 2183.404 Output Total 425 / 425 200 / 200 Balance 898.924 / 1898.924 -140.52 / 1758.404 -200 / -200 Weight last 48 hrs Weight 200 lb Physical Exam Narrative: GENERAL: Patient is alert, awake and oriented x3. [] NECK: No jugular vein distension. [] HEENT: No cyanosis. No icterus. No pallor. [] HEART: Regular S1 and S2. No murmur, rub or gallop. [] LUNGS: Clear to auscultate bilaterally. [] CENTRAL NERVOUS SYSTEM: Grossly nonfocal. [] EXTREMITIES: Lower extremities with no edema Data 12/22/22 01:04 12/22/22 01:04 A&P Assessment and plan (1) Atrial fibrillation with rapid ventricular response: (2) Hypertension: (3) Hyperlipidemia: (4) Chest pain: (5) Goals of care, counseling/discussion: (6) NSTEMI (non-ST elevated myocardial infarction): Plan Patient presented with typical chest pain and significant troponin elevation. In the setting of A-fib with RVR, it can be related to demand ischemia however given typical chest pain, significant troponin elevation consistent with NSTEMI and risk factors for CAD, we will proceed with coronary angiogram with possible percutaneous coronary intervention. N.p.o. past midnight. Continue aspirin and anticoagulation. Continue telemetry monitoring. Echocardiogram shows mildly reduced LV systolic function. Thank you for involving us with care of this patient. We will continue to follow. Please call with questions. Consult Attestations Medical Necessity Statement: Care expected to cross 2 midnights. Coding Level of Care Code Acute Code for [facility] Fwd Diagnoses Atrial fibrillation with rapid ventricular response I48.91 Hypertension I10 Hyperlipidemia E78.5 Chest pain R07.9 Goals of care, counseling/discussion Z71.89 NSTEMI (non-ST elevated myocardial infarction) I21.4
[2022-12-21 08:56] LABS: Troponin T (5th) Once 136 ng/L (0-15)
[2022-12-21 11:58] LABS: Partial Thromboplastin Time 64.1 SECONDS (23.9-36.7)
--- NOTE | 2022-12-21 12:52 | PM.PN ---
Subjective Subjective: Patient was seen this morning, he had 1 episode of chest pain, none currently, no fevers, no chills, no cough does report shortness of breath when getting up and using the bathroom, yesterday he converted into normal sinus rhythm, we discussed his troponin elevation, family members at bedside, spoke to and son, I had a discussion with cardiology, Dr. Anton, discussed patient's risk factors elevated troponin, potentially will proceed with coronary angiogram tomorrow morning, I discussed this with family, and patient, they are agreeable, Vitals/I&O/Wt Last Vital Signs Temp 97.6 F 12/20/22 20:00 Pulse 60 12/21/22 08:50 Resp 16 12/21/22 08:50 BP 129/80 12/21/22 08:20 Pulse Ox 96 12/21/22 08:50 O2 Del Method Room Air 12/21/22 08:50 12/20/22 12/21/22 12/21/22 22:59 06:59 14:59 Intake Total 898.924 / 1898.924 284.48 / 2183.404 Output Total 425 / 425 200 / 200 Balance 898.924 / 1898.924 -140.52 / 1758.404 -200 / -200 Weight last 48 hrs Weight 90.718 kg Physical Exam Const: COMMON NORMALS: no acute distress and patient oriented x3 Resp: COMMON NORMALS: normal respiratory effort, No retractions, No use of accessory muscles and clear to auscultation bilaterally AUSCULTATION: clear to auscultation bilaterally Cardio: COMMON NORMALS: regular rate, regular rhythm, S1 normal heart sound present and S2 normal heart sound present RATE: regular rate RHYTHM: regular rhythm HEART SOUNDS: S1 normal heart sound present and S2 normal heart sound present GI: COMMON NORMALS: Normal to inspection, nondistended, normoactive bowel sounds present and non-tender Extremity: COMMON NORMALS: no pedal edema Neuro: COMMON NORMALS: patient oriented x3 Psych: COMMON NORMALS: mental status grossly normal Data 12/21/22 04:28 12/21/22 04:28 A&P Assessment and plan (1) Atrial fibrillation with rapid ventricular response: (2) Hypertension: (3) Hyperlipidemia: (4) Chest pain: (5) Goals of care, counseling/discussion: (6) NSTEMI (non-ST elevated myocardial infarction): Plan Chest pain, NSTEMI -Positive delta troponin -Aspirin, statin -N.p.o. midnight, coronary angiography tomorrow morning -Aspirin, statin, beta-claudine Hypertension Continue beta-claudine Hyperlipidemia, lipid panel, A1c, statin A-fib with RVR, currently converted to normal sinus rhythm -Increase dose of metoprolol to 50 twice daily -TSH, mag -Echocardiogram, EF mildly reduced, poor ultrasonic windows -Ramiro vas score 2, start heparin drip monitor hemoglobin Full code Heparin drip for DVT prophylaxis Goals of care discussion, patient wants to be a full code Plan for today continue heparin drip, monitor for recurrent chest pain, blood pressure control monitor heart rate, n.p.o. midnight for coronary angiography tomorrow morning, spoke to patient, spoke to patient's family, spoke to nursing staff, spoke to cardiology Attestations Medical Necessity Statement*: Patient requires hospitalization for NSTEMI, chest pain Diagnoses Atrial fibrillation with rapid ventricular response I48.91 Hypertension I10 Hyperlipidemia E78.5 Chest pain R07.9 Goals of care, counseling/discussion Z71.89 NSTEMI (non-ST elevated myocardial infarction) I21.4
[2022-12-21 17:41] LABS: Partial Thromboplastin Time 44.8 SECONDS (23.9-36.7)
[2022-12-21] MEDS: tamsulosin 0.4 mg Capsule PO (20:19)
[2022-12-21] MEDS: cyclobenzaprine 10 mg Tablet PO (20:19)
[2022-12-22] VITALS (55 sets, daily range): BP systolic 105–155; BP diastolic 62–92; PULSE 49–98; RESP 10–24; TEMP 36.5; O2SAT 90–98
[2022-12-22 01:12] LABS: Basophils # 0.1 10^3/uL (0.0-0.1); Basophils % 0.8 %; Eosinophils # 0.2 10^3/uL (0.0-0.8); Eosinophils % 2.5 %; Hematocrit 46.1 % (42.0-52.0); Hemoglobin 15.6 g/dL (11.7-16.6); Lymphocytes # 3.3 10^3/uL (0.8-4.8); Lymphocytes % 43.6 %; Mean Corpuscular HGB Conc 33.8 g/dL (30.0-36.0); Mean Corpuscular Hemoglobin 31.8 pg (28.0-34.0); Mean Corpuscular Volume 94.1 fl (80-94); Mean Platelet Volume 10.1 fL (7.4-10.4); Monocytes # 0.7 10^3/uL (0.2-0.9); Monocytes % 8.6 %; Neutrophils # 3.37 10^3/uL (1.8-7.7); Neutrophils % 44.2 %; Nucleated Red Blood Cells % 0 %; Platelet Count 173 10^3/cmm (130-400); Red Cell Distribution Width 12.7 % (12.1-15.1); White Blood Count 7.6 10^3/uL (4.0-10.0)
[2022-12-22 01:26] LABS: Partial Thromboplastin Time 67.1 SECONDS (23.9-36.7)
[2022-12-22 01:35] LABS: Blood Urea Nitrogen 12 mg/dL (8-23); Calcium 8.9 mg/dL (8.5-10.5); Carbon Dioxide 25 mmol/L (22-29); Chloride 106 mmol/L (98-107); Glomerular Filtration Rate 95.8 mL/min (90-130); Glucose 104 mg/dL (65-115); Magnesium 1.9 mg/dL (1.7-2.3); Osmolality Calculated 290 mOsm/kg (285-295); Phosphorus 3.4 mg/dL (2.5-4.5); Sodium 140 mmol/L (136-145)
[2022-12-22] MEDS: diphenhydrAMINE 50 mg Capsule PO (05:02)
[2022-12-22] MEDS: sodium chloride 0.9% 1,000 ML 50 ML IV (05:03)
--- NOTE | 2022-12-22 05:17 | XACV_ITS ---
Exam Room: [facility] Ht: 168 cm Wt: 91 kg BSA: 2.09 m2 Gender: Male : 1955 Exam Priority: Routine Procedure(s): Procedure Description: Diagnostic procedure Procedure Description: PCI procedure Procedure Description: Left Heart Catheterization Procedure Description: Drug Eluting Coronary Stent Procedure Description: PTCA Procedure Description: Miscellaneous Procedure Description: ACT Procedure Description: Coronary Angiography Diagnostic Cath Status: Urgent Diagnostic Findings * Left Main has mild luminal irregularities. * Circumflex has mild luminal irregularities. * Right Coronary Artery has mild to moderate luminal irregularities. * Mid Left Anterior Descending: significant 80% stenosis, BETO: 3 flow. * Coronary angiography shows right dominance. PCI Status: Urgent PCI Indication: NSTE - ACS Interventional Findings * Procedure detail: We engaged the left main artery with XB 3.0 guide catheter. IV heparin was administered to maintain anticoagulation. We will predilated the stenosis with 2.5 x 12 mm semicompliant balloon. This was followed with placement of 2.75 x 15 mm resolute Willa drug-eluting stent. At this time we performed final angiogram that showed excellent stent expansion, no residual stenosis and BETO-3 flow. Guidewire and guide catheter were removed. 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 * Mid Left Anterior Descendin% stenosis treated with a AB TREK 2.50X12 RX BALLOON, and MDT R WILLA 2.75X15 EMELY. 0% residual stenosis, BETO: 3 flow. Conclusions 1. Severe mid LAD stenosis s/p successful revascularization with EMELY x1.. 2. Mid Left Anterior Descending was treated with a Balloon, and Drug Eluting Stent. Recommendations * Continue Plavix for at least 1 year. Continue Eliquis 5 mg twice daily. * High intensity statin therapy. * Outpatient cardiology follow up in 4 weeks. Interventional RX Recommendation: PCI w/o planned CABG Diagnostic RX Recommendation: PCI w/o planned CABG Anticoagulation: Heparin Pressures Phase:Rest AO : 83 / 62 ( 74 ) @ 7:21:00 AM 114 / 73 ( 90 ) @ 7:26:00 AM 116 / 73 ( 92 ) @ 7:26:00 AM 98 / 71 ( 83 ) @ 7:27:00 AM LV : 132 / 1 / 25 @ 7:25:00 AM 132 / 2 / 25 @ 7:26:00 AM Valves Phase:DefaultPhase AV : 19.0 @ 6:49:27 AM 19.0 @ 6:49:27 AM AV Mean Gradient: 12.0 @ 6:49:27 AM 12.0 @ 6:49:27 AM Clinical Evaluation EBL: 5mL-10mL Procedural Details Procedure Consent Obtained. Admit Source: In Patient. Pre-Procedure Time Out. Identified patient by full name and date of as verbalized by the patient/guarantor. Does the consent match the physician's order: Yes. Accurate & Complete Informed Consent: Yes. Inpatient/Outpatient History & Physical on Chart: Yes. If H&P is completed, is and addenduem needed: No; If yes, is the addendum complete: N/A. Visualize and Verify Site with Patient/Guarantor: N/A. Relevant Radiology Images available: N/A. Pre-op teaching completed and patient verbalized understanding. The risks, benefits, and alternatives of sedation and/or procedure were discussed by physician. The patient agrees to continue. Procedure started. [facility] Clinical Fraility Score: 3: Managing Well. Petroleum Inspector Indications: Worsening Angina. Chest Pain Symptom Assessment: Typical Angina Symptoms. Correct patient, site and procedure confirmed by cath team. Current diagnosis: NSTEMI. PERRLA. Strong, equal hand crackling press operator bilaterally. Lungs clear x 5 lobes. IV Site on Arrival: 20 gauge in the right anticubital. IV Fluids: 0.9% NaCl at KVO. 0 mL infused prior to catheter builder. Pre Procedural Pulses: right radial was 3+. Pre Procedural Pulses: bilateral dorsalis pedis was 2+. Oxygen started at 2liters/min via nasal canula. right groin was prepped with chloroprep then draped in the usual sterile fashion. right radial was prepped with chloroprep then draped in the usual sterile fashion. Baseline sample Acquired. HR: 55 BPM. Physician notified. Physician arrived. Physician scrubbed in. Immediate Pre-Procedure Time Out. Correct Patient: Yes; Correct Procedure: Yes; Correct Site: Yes; Correct Patient Position: Yes; Correct Supplies: Yes; Dried Flammable Prep: Yes; Blood Products Available: N/A;. Lidocaine 1% infiltrated to the right radial. Arterial access obtained. A 5 [place] TIG catheter in over wire. Multiple views taken of left coronary artery. Catheter redirected to the RCA. Catheter removed over the exchange wire. Multiple views taken of right coronary artery. 6 [place] XB 3 guide catheter was inserted over the wire. EDP Sample taken: LV 132/1,25; HR: 63 BPM; SpO2: 94%. Pullback taken: LV 132/2,25; AO 114/73(90); Mean: 12mmHg, Peak to Peak: 19mmHg, SEP: 18sec/min; HR: 63 BPM; SpO2: 93%. Runthrough guidewire was advanced through the guide catheter to lesion in the mid LAD. Balloon inserted to lesion in the mid LAD. Inflation number : 1 A AB TREK 2.50X12 RX BALLOON was prepped and advanced across the Mid LAD , then inflated to 12 JEAN CLAUDE for 0:14 seconds. Inflation number: 2 The AB TREK 2.50X12 RX BALLOON was reinflated across the Mid LAD, to 12 JEAN CLAUDE for 0:11 seconds. Results checked. Balloon out. Stent inserted to lesion in the mid LAD. Inflation Number : 3 A ANUJ Brooks WILLA 2.75X15 EMELY -Lot Number# [id number] Exp 09/04/2024 was prepped and advanced across the Mid LAD. The stent was deployed at 12 JEAN CLAUDE for 0:16 seconds. Stent balloon out over wire. Results checked. ACT drawn. Results high, out of range. No heparin given. Wire out. Guide catheter out. A TR Band was successful obtaining hemostatsis at the Right Radial artery insertion site. Post Procedure: Pulses reassessed and unchanged. PERRLA. Strong, equal hand crackling press operator bilaterally. No VTE prophylaxis required. Medication's Wasted: Lidocaine 1% = 2 mL. Medication's Wasted: Nitro = 49.6 mg. Medication's Wasted: Heparin = 2000 u. Medication's Wasted: Other = Versed 1 mg. Medication's Wasted: Other = Fentanyl 50 mcg. Total IV fluids: 30 mL. PCI Indication: NSTE. Post-op diagnosis: Severe Mid LAD Stenosis, S/P successful stenting x1. Complications: none. Estimated blood loss: 5mL-10mL. Responsiveness - Normal response to verbal stimuli; alert and oriented, PERRLA. Airway - Unaffected, no intervention required; spontaneous ventilation. Circulation: W/N/L, pulses unchanged. Nausea/Vomiting: No. Procedure completed. Patient transferred by wheelchair to 1st floor. Vital chart was stopped. Access Site Site: Right Radial artery Sheath Size: 6 Fr Hemostasis Method: TR Band Hemostasis Success: Successful Procedure Medications Start: 6:13 AM Stop: 6:13 AM Medication: Versed Amount: 1 mg Route: I.V. Start: 6:13 AM Stop: 6:13 AM Medication: Fentanyl Amount: 50 mcg Route: I.V. Start: 6:18 AM Stop: 6:18 AM Medication: Nitrogylcerin Amount: 200 mcg Route: I.A. Start: 6:20 AM Stop: 6:20 AM Medication: Heparin Amount: 5000 units Route: I.V. Start: 6:24 AM Stop: 6:24 AM Medication: Heparin Amount: 4000 units Route: I.V. Start: 6:33 AM Stop: 6:33 AM Medication: Nitrogylcerin Amount: 200 mcg Route: I.C. Start: 6:38 AM Stop: 6:38 AM Medication: Plavix Amount: 600 mg Route: P.O. Start: 6:38 AM Stop: 6:38 AM Medication: Aspirin Amount: 325 mg Route: P.O. I, the attending physician, have reviewed and verified all procedure medications. Yes, all medications given per verbal order History/Risk Factors Hypertension: Yes Dyslipidemia: Yes Peripheral Arterial Disease (PAD): No Myocardial Infarction (ID): No Obesity: Yes Renal Disease: No Tobacco Use: Never Prior Interventions PCI: No CABG: No Valve Surgery: No Report Signatures Finalized by Alejandro Anton MD on 12/25/2022 05:18 PM
--- NOTE | 2022-12-22 06:13 | W.PM.OPSUD ---
Surgery/Procedure H&P Update DATE OF PROCEDURE: December 22, 2022 DATE H&P PERFORMED: 12/21/22 H&P UPDATE INFORMATION: I have reviewed H&P completed within last 30 days, I have examined patient prior to procedure and No changes to prior documentation PREOP DIAGNOSIS: NSTEMI PRIMARY INDICATION FOR PROCEDURE: NSTEMI PLANNED PROCEDURE: Left heart cath with possible percutaneous coronary intervention PATIENT REASSESSED PRIOR TO SEDATION, WITH NO CHANGE NOTED: Yes PHYSICAL EXAM: alert, oriented x 3, clear to auscultation bilaterally and regular rate & rhythm AIRWAY EVAL/ANESTHESIA PLAN: normal airway, ASA III, Monitored Anesthesia, Local Anesthesia, Risks, benefits & alternatives of sedation and/or procedure discussed and Patient agrees to continue as planned ADDITIONAL INFORMATION: Moderate sedation
--- NOTE | 2022-12-22 06:47 | PM.PN ---
Subjective Subjective: Patient is doing well. He underwent coronary angiogram that showed severe mid LAD stenosis. He underwent successful revascularization with EMELY x1. Vitals/I&O/Wt Last Vital Signs Temp 97.7 F 12/22/22 03:27 Pulse 55 L 12/22/22 04:38 Resp 15 12/22/22 03:27 BP 121/78 12/22/22 03:27 Pulse Ox 95 12/22/22 03:27 O2 Del Method Room Air 12/22/22 03:27 12/21/22 12/21/22 12/22/22 14:59 22:59 06:59 Intake Total 360 / 360 648.72 / 1008.72 240 / 1248.72 Output Total 200 / 200 400 / 600 Balance 160 / 160 648.72 / 808.72 -160 / 648.72 Weight last 48 hrs Weight 200 lb Physical Exam Narrative: GENERAL: Patient is alert, awake and oriented x3. [] NECK: No jugular vein distension. [] HEENT: No cyanosis. No icterus. No pallor. [] HEART: Regular S1 and S2. No murmur, rub or gallop. [] LUNGS: Clear to auscultate bilaterally. [] CENTRAL NERVOUS SYSTEM: Grossly nonfocal. [] EXTREMITIES: Lower extremities with no edema Data 12/22/22 01:04 12/22/22 01:04 A&P Assessment and plan (1) Atrial fibrillation with rapid ventricular response: (2) Hypertension: (3) Hyperlipidemia: (4) Chest pain: (5) Goals of care, counseling/discussion: (6) NSTEMI (non-ST elevated myocardial infarction): Plan Patient had severe mid LAD stenosis s/p successful revascularization with EMELY x1. Continue aspirin. We will start Plavix. At time of discharge he will need anticoagulation for stroke prevention. Can be discharged home on Plavix and Eliquis. High intensity statin therapy. Continue metoprolol. Continue tele monitoring today. Thank you for involving us with care of this patient. We will continue to follow. Can be discharged home tomorrow. Please call with questions. Attestations Medical Necessity Statement*: Care expected to cross 2 midnight Coding Level of Care Code Acute Code for [facility] Fwd Diagnoses Atrial fibrillation with rapid ventricular response I48.91 Hypertension I10 Hyperlipidemia E78.5 Chest pain R07.9 Goals of care, counseling/discussion Z71.89 NSTEMI (non-ST elevated myocardial infarction) I21.4
--- NOTE | 2022-12-22 07:37 | PC.NURSE ---
Patient arrived back on unit at 0647.
[2022-12-22] MEDS: aspirin 81 mg EC Tablet PO (08:13)
[2022-12-22] MEDS: cholecalciferol (vitamin D3) 1,000 unit Tablet 1000 UNIT PO (08:13)
[2022-12-22] MEDS: finasteride 5 mg Tablet PO (08:13)
[2022-12-22] MEDS: famotidine 20 mg Tablet PO ×2 (08:13→17:21)
--- NOTE | 2022-12-22 13:26 | P.PN_ITS ---
Subjective Subjective: Patient was seen after get a cardiac catheterization, LAD was stented, no recurrent chest pain, he is feeling better this morning Vitals/I&O/Wt Last Vital Signs Temp 97.7 F 12/22/22 03:27 Pulse 63 12/22/22 10:30 Resp 20 H 12/22/22 10:30 BP 124/62 12/22/22 10:30 Pulse Ox 95 12/22/22 10:30 O2 Del Method Room Air 12/22/22 07:38 12/21/22 12/22/22 12/22/22 22:59 06:59 14:59 Intake Total 648.72 / 1008.72 240 / 1248.72 480 / 480 Output Total 400 / 600 Balance 648.72 / 808.72 -160 / 648.72 480 / 480 Physical Exam Const: COMMON NORMALS: no acute distress and patient oriented x3 Resp: COMMON NORMALS: normal respiratory effort, No retractions, No use of accessory muscles and clear to auscultation bilaterally AUSCULTATION: clear to auscultation bilaterally Cardio: COMMON NORMALS: regular rate, regular rhythm, S1 normal heart sound present and S2 normal heart sound present RATE: regular rate RHYTHM: regular rhythm HEART SOUNDS: S1 normal heart sound present and S2 normal heart sound present GI: COMMON NORMALS: Normal to inspection, nondistended, normoactive bowel sounds present and non-tender Extremity: COMMON NORMALS: no pedal edema Neuro: COMMON NORMALS: patient oriented x3 Psych: COMMON NORMALS: mental status grossly normal Data 12/22/22 01:04 12/22/22 01:04 A&P Assessment and plan (1) Atrial fibrillation with rapid ventricular response: (2) Hypertension: (3) Hyperlipidemia: (4) Chest pain: (5) Goals of care, counseling/discussion: (6) NSTEMI (non-ST elevated myocardial infarction): Plan Chest pain, NSTEMI -Positive delta troponin -Aspirin, statin -Status post LAD stent -Continue beta-claudine has an allergy to statin, will discuss with cardiology about Repatha, start Eliquis 5 twice daily at 6 PM, discharged on Plavix Hypertension Continue beta-claudine Hyperlipidemia, lipid panel, A1c, statin A-fib with RVR, currently converted to normal sinus rhythm -Increase dose of metoprolol to 25mg bid -Echocardiogram, EF mildly reduced, poor ultrasonic windows -Ramiro vas score 2, on eliquis Full code Heparin drip for DVT prophylaxis Goals of care discussion, patient wants to be a full code Attestations Medical Necessity Statement*: Patient requires hospitalization for NSTEMI, chest pain, A-fib Coding Level of Care Code 45554 Moderate MDM includes number and complexity of problems actively addressed during encounter, amount and/or complexity of data reviewed/ordered and described risk of complication, morbidity or mortality of management as d ocumented Diagnoses Atrial fibrillation with rapid ventricular response I48.91 Hypertension I10 Hyperlipidemia E78.5 Chest pain R07.9 Goals of care, counseling/discussion Z71.89 NSTEMI (non-ST elevated myocardial infarction) I21.4
[2022-12-22] MEDS: apixaban 5 mg Tablet PO (17:21)
[2022-12-22] MEDS: metoprolol tartrate 25 mg Tablet PO (20:29)
[2022-12-22] MEDS: tamsulosin 0.4 mg Capsule PO (20:29)
[2022-12-22] MEDS: sennosides 8.6 mg Tablet PO (20:30)
[2022-12-23 03:44] VITALS: PULSE 52
[2022-12-23 03:53] VITALS: BP 132/80; PULSE 71; RESP 20; TEMP 36.4; O2SAT 95
[2022-12-23 05:02] LABS: Basophils # 0.1 10^3/uL (0.0-0.1); Basophils % 0.8 %; Eosinophils # 0.2 10^3/uL (0.0-0.8); Eosinophils % 2.6 %; Hematocrit 45.3 % (42.0-52.0); Hemoglobin 14.8 g/dL (11.7-16.6); Lymphocytes # 1.8 10^3/uL (0.8-4.8); Lymphocytes % 23.1 %; Mean Corpuscular HGB Conc 32.7 g/dL (30.0-36.0); Mean Corpuscular Hemoglobin 31.3 pg (28.0-34.0); Mean Corpuscular Volume 95.8 fl (80-94); Mean Platelet Volume 9.8 fL (7.4-10.4); Monocytes # 0.7 10^3/uL (0.2-0.9); Monocytes % 9.2 %; Neutrophils # 5.03 10^3/uL (1.8-7.7); Nucleated Red Blood Cells % 0 %; Platelet Count 165 10^3/cmm (130-400); Red Blood Count 4.73 10^6/uL (4.1-5.3); Red Cell Distribution Width 12.9 % (12.1-15.1); White Blood Count 7.8 10^3/uL (4.0-10.0)
[2022-12-23 05:26] LABS: Anion Gap 13.9 (5-19); Blood Urea Nitrogen 8 mg/dL (8-23); Calcium 8.6 mg/dL (8.5-10.5); Carbon Dioxide 20 mmol/L (22-29); Chloride 106 mmol/L (98-107); Glomerular Filtration Rate 111.8 mL/min (90-130); Glucose 92 mg/dL (65-115); Magnesium 1.7 mg/dL (1.7-2.3); Osmolality Calculated 280 mOsm/kg (285-295); Phosphorus 3.2 mg/dL (2.5-4.5); Potassium 3.9 mmol/L (3.5-5.1); Sodium 136 mmol/L (136-145)
[2022-12-23] MEDS: apixaban 5 mg Tablet PO (05:57)
--- NOTE | 2022-12-23 06:46 | P.PN_ITS ---
Subjective Subjective: Patient doing well. Had PCI of mid LAD yesterday. No chest pain. Vitals/I&O/Wt Last Vital Signs Temp 97.6 F 12/23/22 03:53 Pulse 71 12/23/22 03:53 Resp 20 H 12/23/22 03:53 BP 132/80 12/23/22 03:53 Pulse Ox 95 12/23/22 03:53 O2 Del Method Room Air 12/23/22 03:53 12/22/22 12/22/22 12/23/22 14:59 22:59 06:59 Intake Total 840 / 840 780 / 1620 1000 / 2620 Output Total 300 / 300 150 / 450 Balance 840 / 840 480 / 1320 850 / 2170 Physical Exam Narrative: GENERAL: Patient is alert, awake and oriented x3. [] NECK: No jugular vein distension. [] HEENT: No cyanosis. No icterus. No pallor. [] HEART: Regular S1 and S2. No murmur, rub or gallop. [] LUNGS: Clear to auscultate bilaterally. [] CENTRAL NERVOUS SYSTEM: Grossly nonfocal. [] EXTREMITIES: Lower extremities with no edema Data 12/23/22 04:51 12/23/22 04:51 A&P Assessment and plan (1) Atrial fibrillation with rapid ventricular response: (2) Hypertension: (3) Hyperlipidemia: (4) Chest pain: (5) Goals of care, counseling/discussion: (6) NSTEMI (non-ST elevated myocardial infarction): Plan Patient is overall stable. Continue Plavix and Eliquis. High intensity statin therapy. Patient is stable to be discharged from cardiology standpoint. Thank you for involving us with care of this patient. Attestations Medical Necessity Statement*: Care expected to cross 2 midnights. Coding Level of Care Code Acute Code for [facility] Fwd Diagnoses Atrial fibrillation with rapid ventricular response I48.91 Hypertension I10 Hyperlipidemia E78.5 Chest pain R07.9 Goals of care, counseling/discussion Z71.89 NSTEMI (non-ST elevated myocardial infarction) I21.4
[2022-12-23 07:23] VITALS: BP 140/97; PULSE 68; RESP 14; TEMP 37.1; O2SAT 94
[2022-12-23] MEDS: famotidine 20 mg Tablet PO (08:29)
[2022-12-23] MEDS: metoprolol tartrate 25 mg Tablet PO (08:29)
[2022-12-23] MEDS: finasteride 5 mg Tablet PO (08:29)
[2022-12-23] MEDS: cholecalciferol (vitamin D3) 1,000 unit Tablet 1000 UNIT PO (08:29)
[2022-12-23] MEDS: clopidogrel 75 mg Tablet PO (08:29)
--- NOTE | 2022-12-23 10:35 | P.DS_ITS ---
Discharge Providers Date of Admission: 12/20/22 15:00 Date of Discharge: December 23, 2022 Attending Provider at Admission: Antonio Pitt MD Attending Provider at Discharge: Antonio Pitt MD Primary Care Provider: Alex Whyte MD Diagnoses at Discharge Discharge Diagnosis (1) Atrial fibrillation with rapid ventricular response: Status: Acute (2) Hypertension: Status: Acute (3) Hyperlipidemia: Status: Acute (4) Chest pain: Status: Acute (5) Goals of care, counseling/discussion: Status: Acute (6) NSTEMI (non-ST elevated myocardial infarction): Status: Acute Reason for Visit Reason for Visit: Chest pain Hospital Course Hospital Course Andres Henriquez is a 67 year old male with a past medical history of hypertension, hyperlipidemia, who presents [facility] for chest pain, shortness of breath, chest palpitations.? Patient tells me that recently he has been developing substernal chest pain, radiating to his back up to his neck, associated shortness of breath.? Has been feeling more short of breath with exertion, he has been try to exercise more he tells me that with 5 minutes on the treadmill, he feels more short of breath.? He tells me that he was going fishing yesterday, and his son said that he looked quite short of breath, with minimal exertion.? Today he was going to track and feel need to watch one of his grandchildren, and when he climbed up the bleachers, he was feeling quite short of breath he went to sit down, start developed substernal chest pain radiating up to the neck, rating down the arm, sharp pain, associate with chest palpitations he felt as if he was going to pass out, no nausea, vomiting, diaphoresis.? In the emergency room he was found to have A-fib with RVR,, currently he received Cardizem, currently in A-fib the heart rates are in the 80s, he tells me that he has had an angiogram but it was been over 10 years patient was admitted to [facility] for chest pain, NSTEMI, with positive delta troponins, cardiology was consulted, status post cardiac catheterization and stenting to LAD, Toller procedure well, discharged home on Plavix 75 mg once daily, Eliquis 5 mg twice daily, patient has statin intolerance, severe myopathy, patient will see cardiology in 1 week for consideration of Repatha infusions which I would recommend as primary prevention Patient had A-fib with RVR during his hospitalization, converted to normal sinus rhythm, discharged on his home metoprolol 25 mg twice daily, Ramiro Vasc score 3, discharged on Eliquis 5 mg twice daily - Please take Eliquis 5 mg twice daily as prescribed -Take Plavix 75 mg once daily -Please do not stop taking Eliquis or Plavix as they are keeping your stent open -If you develop bloody or black stools go to the emergency room -Please follow-up with cardiology, -Discussed with cardiology about Repatha infusions given statin intolerance -See primary care next week for blood pressure check, recheck CBC -If you would feel lightheaded or dizzy or have chest pain please go to the emergency room Physical Exam Const: COMMON NORMALS: no acute distress and patient oriented x3 Resp: COMMON NORMALS: normal respiratory effort, No retractions, No use of accessory muscles and clear to auscultation bilaterally AUSCULTATION: clear t o auscultation bilaterally Cardio: COMMON NORMALS: regular rate, regular rhythm, S1 normal heart sound present and S2 normal heart sound present RATE: regular rate RHYTHM: regular rhythm HEART SOUNDS: S1 normal heart sound present and S2 normal heart sound present GI: COMMON NORMALS: Normal to inspection, nondistended, normoactive bowel sounds present and non-tender Extremity: COMMON NORMALS: no pedal edema Neuro: COMMON NORMALS: patient oriented x3 Psych: COMMON NORMALS: mental status grossly normal Discharge Data Studies Completed and Pending Completed Studies During Hospitalization Category Date Time Status XR chest 1V portable [id number] Stat Exams 12/20/22 12:47 Completed CV. 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 Laboratory Results WBC 7.8 10^3/uL (4.0-10.0) 12/23/22 04:51 RBC 4.73 10^6/uL (4.1-5.3) 12/23/22 04:51 Hgb 14.8 g/dL (11.7-16.6) 12/23/22 04:51 Hct 45.3 % (42.0-52.0) 12/23/22 04:51 MCV 95.8 fl (80-94) H 12/23/22 04:51 MCH 31.3 pg (28.0-34.0) 12/23/22 04:51 MCHC 32.7 g/dL (30.0-36.0) 12/23/22 04:51 RDW 12.9 % (12.1-15.1) 12/23/22 04:51 Plt Count 165 10^3/cmm (130-400) 12/23/22 04:51 MPV 9.8 fL (7.4-10.4) 12/23/22 04:51 Neut % (Auto) 64.0 % 12/23/22 04:51 Lymph % (Auto) 23.1 % 12/23/22 04:51 [place] % (Auto) 9.2 % 12/23/22 04:51 Eos % (Auto) 2.6 % 12/23/22 04:51 Baso % (Auto) 0.8 % 12/23/22 04:51 Neut # (Auto) 5.03 10^3/uL (1.8-7.7) 12/23/22 04:51 Lymph # (Auto) 1.8 10^3/uL (0.8-4.8) 12/23/22 04:51 [place] # (Auto) 0.7 10^3/uL (0.2-0.9) 12/23/22 04:51 Eos # (Auto) 0.2 10^3/uL (0.0-0.8) 12/23/22 04:51 Baso # (Auto) 0.1 10^3/uL (0.0-0.1) 12/23/22 04:51 Nucleated RBC % (auto) 0 % 12/23/22 04:51 Nucleated RBCs # 0.0 /100WBC 12/23/22 04:51 PT 13.40 SECONDS (12.1-14.9) 12/20/22 13:20 INR 0.99 (0.8-1.2) 12/20/22 13:20 APTT 67.1 SECONDS (23.9-36.7) H 12/22/22 01:04 Sodium 136 mmol/L (136-145) 12/23/22 04:51 Potassium 3.9 mmol/L (3.5-5.1) 12/23/22 04:51 Chloride 106 mmol/L (98-107) 12/23/22 04:51 Carbon Dioxide 20 mmol/L (22-29) L 12/23/22 04:51 Anion Gap 13.9 (5-19) 12/23/22 04:51 BUN 8 mg/dL (8-23) 12/23/22 04:51 Creatinine 0.7 mg/dL (0.7-1.2) 12/23/22 04:51 GFR Calculation 111.8 mL/min (90-130) 12/23/22 04:51 Glucose 92 mg/dL (65-115) 12/23/22 04:51 Estimat Average Glucose 111 12/20/22 13:20 Hemoglobin A1c 5.5 % (4.0-6.0) 12/20/22 13:20 Calculated Osmolality 280 mOsm/kg (285-295) L 12/23/22 04:51 Calcium 8.6 mg/dL (8.5-10.5) 12/23/22 04:51 Phosphorus 3.2 mg/dL (2.5-4.5) 12/23/22 04:51 Magnesium 1.7 mg/dL (1.7-2.3) 12/23/22 04:51 Total Bilirubin 0.4 mg/dL (0.15-1.2) 12/21/22 04:28 AST 36 U/L (0-40) 12/21/22 04:28 ALT 35 U/L (0-41) 12/21/22 04:28 Alkaline Phosphatase 49 U/L (40-130) 12/21/22 04:28 Troponin T Gen 5 ng/L 136 ng/L (0-15) H* 12/21/22 08:26 Troponin T Baseline 22 ng/L (0-15) H 12/20/22 13:20 Troponin T 120 Minute 55.04 ng/L (0-15) H 12/20/22 15:42 Delta Troponin T 33.04 ABS# (0-10) H* 12/20/22 15:42 Troponin T Hi Sens 6Hr 129.6 ng/L (0-15) H 12/20/22 19:08 Troponin T Hi Sens 6Hr Delta 107.6 ng/L (0-12) H* 12/20/22 19:08 NT-Pro-B Natriuret Pep 98 pg/mL (0-125) 12/20/22 13:20 Total Protein 5.9 g/dL (6.6-8.7) L 12/21/22 04:28 Albumin 3.7 g/dL (3.5-5.2) 12/21/22 04:28 Globulin 2.2 g/dL (1.3-4.6) 12/21/22 04:28 Triglycerides 285 mg/dL (0-150) H 12/20/22 13:20 Cholesterol 258 mg/dL (0-200) H 12/20/22 13:20 LDL Cholesterol, Calc 165 mg/dL (50-129) H 12/20/22 13:20 HDL Cholesterol 36 mg/dL (60-100) L 12/20/22 13:20 LDL/HDL Ratio 4.58 RATIO (0.00-3.22) H 12/20/22 13:20 Cholesterol/HDL Ratio 7.17 mg/dL (1.0-5.00) H 12/20/22 13:20 Lipase 35 U/L (13-60) 12/20/22 13:20 TSH 3.25 uIU/mL (0.27-4.20) 12/20/22 13:20 Vitals Last Vital Signs Temp 98.7 F 12/23/22 07:23 Pulse 68 12/23/22 07:23 Resp 14 12/23/22 07:23 BP 140/97 12/23/22 07:23 Pulse Ox 94 12/23/22 07:23 O2 Del Method Room Air 12/23/22 07:23 Discharge Plan Discharge Patient Disposition: Home Condition: Stable Prescriptions: New nitroglycerin 0.4 mg Tablet, Sublingual 0.4 mg sublingual Q5M PRN (Reason: Chest Pain) 30 Days Qty: 30 0RF Eliquis 5 mg Tablet 5 mg PO Q12H 30 Days Qty: 60 0RF clopidogrel 75 mg Tablet 75 mg PO DAILY 30 Days Qty: 30 0RF Continued senna 8.6 mg capsule 8.6 mg PO DAILY Fish Oil 120-180-500 mg capsule 1 cap PO DAILY metoprolol tartrate 50 mg tablet 25 mg PO BID famotidine 20 mg tablet 20 mg PO BID Qty: 60 11RF Vitamin D3 25 mcg (1,000 unit) Capsule 25 mcg PO DAILY tamsulosin 0.4 mg capsule 0.4 mg PO BEDTIME finasteride 5 mg tablet 5 mg PO DAILY cyclobenzaprine 10 mg tablet 10 mg PO BEDTIME PRN (Reason: Muscle Spasm) Discontinued aspirin 81 mg tablet,delayed release (DR/EC) 81 mg PO DAILY Discharge Orders: Discharge Order (Routine); Ordered 12/23/22 Ordered By: Antonio Pitt Referrals: Kayley Zuniga FNP [Nurse Practitioner] - 12/31/22 1:45 pm (Please follow-up with Kayley Zuniga on December 31 at 1:45P.M. If you have any questions or need to reschedule. Please call ) Alex Whyte MD [Primary Care Provider] - 1-3 days Discharge Diet: Cardiac Discharge Activity: Limit activity as instructed Patient Instructions: Opioid Safety Activity Restrictions/Additional Instructions: - Please take Eliquis 5 mg twice daily as prescribed -Take Plavix 75 mg once daily -Please do not stop taking Eliquis or Plavix as they are keeping your stent open -If you develop bloody or black stools go to the emergency room -Please follow-up with cardiology, -Discussed with cardiology about Repatha infusions given statin intolerance -See primary care next week for blood pressure check, recheck CBC -If you would feel lightheaded or dizzy or have chest pain please go to the emergency room Discharge Attestations Time Spent in Discharge Care*: greater than 30 min Quality Metrics Clinical Quality Measures [ Acute Myocardial Infaction { Clinical Trial Participant: No; Contraindication to aspirin: None; Aspirin prescribed; Contraindication to statin: Drug allergy; Contraindication to PCI: None; PCI performed;}] Coding Level of Care Code 97952 Total time (in minutes) for Discharge: 45 Diagnoses Atrial fibrillation with rapid ventricular response I48.91 Hypertension I10 Hyperlipidemia E78.5 Chest pain R07.9 Goals of care, counseling/discussion Z71.89 NSTEMI (non-ST elevated myocardial infarction) I21.4
[2022-12-23 10:57] VITALS: BP 125/84; PULSE 69; RESP 16; O2SAT 95
[2022-12-23 11:29] VITALS: BP 142/98; PULSE 66; RESP 19; TEMP 36.7; O2SAT 91
--- NOTE | 2022-12-23 12:03 | PC.SOCIAL ---
IMM Update pg 2 of IMM updated and reviewed w/ patient. Copy provided and Copy dated, initialed and placed in chart.
--- NOTE | 2022-12-23 12:23 | PC.NURSE ---
Patients IV removed at 11:50, tolerated well. Patient given new prescriptions at bedside. Patient and given verbal and written dischatarge instructions, verbalized understanding. Patient taken outside via wheelchair. left facility with at 12:05.
== END 2022-12-23 12:05 | disposition home or self-care (01) | DRG 247 ==
LOC: ER 14:02 → CSU 15:02
PROVIDERS: Internal Medicine; Admitting Provider Family Medicine; Emergency Provider Emergency Medicine; PCP Family Medicine; Visit Provider Family Medicine
PROC: 027034Z Dilation of Coronary Artery, One Artery with Drug-eluting Intraluminal Device, Percutaneous Approach (ICD-10-PCS; principal; 2022-12-22 06:00)
PROC: 027034Z Dilation of Coronary Artery, One Artery with Drug-eluting Intraluminal Device, Percutaneous Approach (ICD-10-PCS; 2022-12-22 06:00)
DX: I21.4 Non-ST elevation (NSTEMI) myocardial infarction (principal); I48.91 Unspecified atrial fibrillation; I10 Essential (primary) hypertension; E78.5 Hyperlipidemia, unspecified
CPT/HCPCS: 36415; 71045; 80048; 80053; 80061; 83036; 83690; 83735; 83880; 84100; 84443; 84484; 85025; 85347; 85610; 85730; 93005; 93306; 93458; 94664; 96374; 96376; 99152; 99153; 99285; C1725; C1769; C1874; C1887; C1894; C9600; J1644; J2250; J3010; J3490; J7030; Q0163; Q9967

== ENCOUNTER → 2022-12-31 13:37 | Outpatient (BNVA) | payer MEDICARE, SELFPAY | PROVIDERS: PCP Family Medicine; Visit Provider Nurse Practitioner Family | DX: I25.10 Atherosclerotic heart disease of native coronary artery without angina pectoris (principal); I10 Essential (primary) hypertension; E78.5 Hyperlipidemia, unspecified; I48.91 Unspecified atrial fibrillation; Z79.01 Long term (current) use of anticoagulants | CPT/HCPCS: 80048; 85025; 99214 ==

== ENCOUNTER → 2023-03-12 12:52 | Outpatient (BNVA) | payer MEDICARE, SELFPAY | PROVIDERS: PCP Family Medicine; Visit Provider Internal Medicine | DX: I48.91 Unspecified atrial fibrillation (principal); I25.10 Atherosclerotic heart disease of native coronary artery without angina pectoris; I10 Essential (primary) hypertension; E78.5 Hyperlipidemia, unspecified | CPT/HCPCS: 99214 ==

== ENCOUNTER 2023-08-13 12:09 | Outpatient (RCR) | payer MEDICARE, SELFPAY | END 2023-09-02 23:59 | disposition home or self-care (01) | LOC: SPT 12:09 | PROVIDERS: PCP Family Medicine; Visit Provider Family Medicine | DX: M19.011 Primary osteoarthritis, right shoulder (principal); M25.551 Pain in right hip | CPT/HCPCS: 97110; 97161 ==

== ENCOUNTER 2023-09-03 06:00 | Outpatient (RCR) | payer MEDICARE, SELFPAY | END 2023-10-01 23:59 | disposition home or self-care (01) | LOC: SPT 06:00 | PROVIDERS: PCP Family Medicine; Visit Provider Family Medicine | DX: M19.011 Primary osteoarthritis, right shoulder (principal); M54.50 Low back pain, unspecified | CPT/HCPCS: 97110 ==

== ENCOUNTER 2023-10-02 06:00 | Outpatient (RCR) | payer MEDICARE, SELFPAY | END 2023-11-01 23:59 | disposition home or self-care (01) | LOC: SPT 06:00 | PROVIDERS: PCP Family Medicine; Visit Provider Family Medicine | DX: M19.011 Primary osteoarthritis, right shoulder (principal); M25.559 Pain in unspecified hip | CPT/HCPCS: 97110 ==

== ENCOUNTER 2023-11-02 06:00 | Outpatient (RCR) | payer MEDICARE, SELFPAY | END 2023-12-01 23:59 | disposition home or self-care (01) | LOC: SPT 06:00 | PROVIDERS: PCP Family Medicine; Visit Provider Family Medicine | DX: M19.011 Primary osteoarthritis, right shoulder (principal); M25.559 Pain in unspecified hip; I48.91 Unspecified atrial fibrillation; I25.10 Atherosclerotic heart disease of native coronary artery without angina pectoris; I10 Essential (primary) hypertension; E78.5 Hyperlipidemia, unspecified | CPT/HCPCS: 97110; 99214 ==

== ENCOUNTER 2023-12-02 06:00 | Outpatient (RCR) | payer MEDICARE, SELFPAY | END 2023-12-03 23:59 | disposition home or self-care (01) | LOC: SPT 06:00 | PROVIDERS: PCP Family Medicine; Visit Provider Family Medicine | DX: M19.011 Primary osteoarthritis, right shoulder (principal); M25.559 Pain in unspecified hip | CPT/HCPCS: 97110 ==

== ENCOUNTER → 2023-12-30 10:32 | Outpatient (BNVA) | payer MEDICARE, SELFPAY | PROVIDERS: PCP Family Medicine; Visit Provider Family Medicine | DX: E55.9 Vitamin D deficiency, unspecified; I10 Essential (primary) hypertension; I25.10 Atherosclerotic heart disease of native coronary artery without angina pectoris; I48.91 Unspecified atrial fibrillation; Z79.899 Other long term (current) drug therapy | CPT/HCPCS: 80053; 80061; 82306; 85025 ==

== ENCOUNTER → 2024-05-03 10:54 | Outpatient (BNVA) | payer MEDICARE, SELFPAY | PROVIDERS: PCP Family Medicine; Visit Provider Internal Medicine | DX: I48.91 Unspecified atrial fibrillation (principal); I25.10 Atherosclerotic heart disease of native coronary artery without angina pectoris; I10 Essential (primary) hypertension; E78.5 Hyperlipidemia, unspecified; Z87.891 Personal history of nicotine dependence | CPT/HCPCS: 99214 ==